=== PATIENT | female | born 1935 | race Caucasian/White ===

== ENCOUNTER 2019-11-03 08:18 | Outpatient (CLI) | payer MEDICARE, SELFPAY ==
[2019-11-03 09:06] LABS: Alanine Aminotransferase 15 U/L (4-35); Albumin Level 4.2 g/dL (3.5-5.1); Alkaline Phosphatase 93 U/L (38-126); Anion Gap 13.4 mmol/L (7-16); Aspartate Amino Transferase 27 U/L (14-36); Bilirubin,Total 0.5 mg/dL (0.2-1.3); Blood Urea Nitrogen 19 mg/dL (7-17); Calcium 9.3 mg/dL (8.4-10.2); Carbon Dioxide 26 mmol/L (22-30); Chloride 102 mmol/L (98-107); Cholesterol 142 mg/dL (0-200); Estimated Glomerular Filt Rate 48; Glucose 104 mg/dL (65-105); HDL Direct 57 mg/dL; Potassium 4.4 mmol/L (3.4-5.0); Sodium 137 mmol/L (137-145); Triglycerides 62 mg/dL (<150)
[2019-11-03 09:17] LABS: LDL Cholesterol Direct 65 mg/dL
[2019-11-03 09:19] LABS: Creatinine Urine 58.6 mg/dL
[2019-11-03 09:24] LABS: MALB Creatinine Ratio 15.9 mg/g (0-30); Microalbumin Urine Random 9.3 mg/L (0-16.7)
[2019-11-03 14:31] LABS: Hemoglobin A1C 5.5 % (<5.7)
== END 2019-11-03 08:19 | disposition home or self-care (01) ==
PROVIDERS: PCP Internal Medicine; Visit Provider Internal Medicine
DX: E78.5 Hyperlipidemia, unspecified (principal); E11.9 Type 2 diabetes mellitus without complications; I10 Essential (primary) hypertension; Z79.899 Other long term (current) drug therapy
CPT/HCPCS: 36415; 80053; 80061; 82043; 83036

== ENCOUNTER 2020-09-27 13:34 | Emergency (ER) | payer MEDICARE, SELFPAY ==
--- NOTE | ~2020-09-27 | XR_ITS ---
EXAMINATION: XR shoulder LT min 2V INDICATION: Left shoulder pain TECHNIQUE: Four views of the left shoulder are submitted. COMPARISON: None FINDINGS: Normal alignment. No fracture. There is moderate osteoarthritis of the acromioclavicular estela int and mild osteoarthritis of the glenohumeral joint. Soft tissues are unremarkable. IMPRESSION: 1. No acute osseous abnormality. Reviewed, dictated and finalized at location A.
--- NOTE | ~2020-09-27 | XR_ITS ---
EXAMINATION: XR shoulder RT min 2V INDICATION: Right shoulder pain TECHNIQUE: Four views of the right shoulder are obtained on five radiographs. COMPARISON: None FINDINGS: Normal alignment. No shoulder fracture. There is moderate osteoarthritis of the acromioclav icular joint and mild osteoarthritis of the glenohumeral joint. Soft tissues are unremarkable. An age -indeterminate T7 compression fracture is noted. IMPRESSION: 1. No acute osseous abnormality of the shoulder. 2. Age-indeterminate T7 compression fracture. Reviewed, dictated and finalized at location A.
[2020-09-27 13:48] VITALS: BP 173/87; PULSE 93; RESP 20; TEMP 36.6; O2SAT 98
--- NOTE | 2020-09-27 15:48 | ED.EXTPRO ---
HPI - Extremity Problem General Chief complaint: Extremity Problem,Nontraumatic Stated complaint: shoulder pain\ Time Seen by Provider: 09/27/20 15:17 Source: patient Mode of arrival: ambulatory Limitations: no limitations History of Present Illness HPI Narrative: This is an 84-year-old female that presents to the emergency department for bilateral shoulder pain present over the last couple of weeks. Pain is worse with movement and relieved with rest. She has been taking anti-inflammatories with relief. Reports decreased active range of motion in the shoulders due to pain. No recent injury or trauma. Denies weakness or numbness. Related Data Allergies Allergy/AdvReac Type Severity Reaction Status Date / Time No Known Allergies Allergy Verified 09/14/20 10:33 Review of Systems Review of Systems: Narrative: CONSTITUTIONAL: Denies fever MUSCULOSKELETAL: Reports joint pain, and myalgia. NEUROLOGIC: Denies numbness, or weakness. All systems reviewed & are unremarkable except as noted in HPI and below PMFSH Past Medical History Medical History Asthma Depression Diabetes Patient denies diabetes but stated she has put on it as preventative Heart murmur Hip fracture, right HTN (hypertension) Hyperlipidemia Migraines Osteopenia Osteopenia Postmenopausal Urinary tract infection Surgical History Surgical History H/O breast biopsy x3 History of hip surgery right Hx of cataract extraction March 11 & April 05 2020 Family History Family History Father Hypertension Acute myocardial infarction Mother Family history of chronic obstructive pulmonary disease Sibling Family history of chronic obstructive pulmonary disease Other Family history of coronary artery disease Social History Social History (Updated 09/14/20 @ 10:35 by Tootie Adame CMA) Social History: The patient was a homemaker. She lives with her Siddharth is [id number]. She has 2 children. She desires to be a full code. Smoking packs per day: 0.5 Smoking cigarettes per day: 10.0 Years smoked: 5 Smoking pack-years: 2.50 Smoking status: Never smoker Tobacco type: cigarettes Second hand tobacco smoke exposure: Yes Alcohol intake: never Substance use: never Substance use type: does not use Gender identity (if verbalized by the patient): Female Spiritual care concerns: No Agree to blood products: Yes Exam Narrative: Exam Narrative: GENERAL: Well-appearing, well-nourished, and in no acute distress. HEAD: Normocephalic, atraumatic. EYES: EOMI. EXTREMITIES: Normal range of motion. No edema, erythema or obvious deformity. Decreased active ROM in the shoulders above 90 degrees. Normal radial pulses. Normal sensation SKIN: Warm, dry, no rash. NEURO: No focal deficits. Alert and oriented x3. PSYCH: Normal mood and affect Course Vital Signs Vital signs: Vital Signs Temperature 97.9 F 09/27/20 13:48 Pulse Rate 93 09/27/20 13:48 Respiratory Rate 20 09/27/20 13:48 Blood Pressure 173/87 H 09/27/20 13:48 Pulse Oximetry 98 09/27/20 13:48 Temperature 97.9 F 09/27/20 13:48 Pulse Rate 93 09/27/20 13:48 Respiratory Rate 20 09/27/20 13:48 Blood Pressure 173/87 H 09/27/20 13:48 Pulse Oximetry 98 09/27/20 13:48 MDM - Extremity (Nontraumatic) MDM Narrative Medical decision making narrative: Patient presents to the emergency department for bilateral shoulder pain noted over the last couple of weeks. Worse with movement and relieved with rest. No recent injuries or trauma. Bilateral shoulder x-rays without acute osseous abnormalities of the shoulder. Does show osteoarthritis. Also shows age-indeterminate T7 compression fracture. Patient denies any back pain or any recent injuries to the back
[2020-09-27 16:46] VITALS: BP 180/103; PULSE 90; RESP 16; O2SAT 99
== END 2020-09-27 16:47 | disposition home or self-care (01) ==
PROVIDERS: Emergency Provider Emergency Medicine; PCP Internal Medicine
DX: M25.512 Pain in left shoulder (principal); M25.511 Pain in right shoulder; J45.909 Unspecified asthma, uncomplicated; I10 Essential (primary) hypertension; E78.5 Hyperlipidemia, unspecified; M85.80 Other specified disorders of bone density and structure, unspecified site; Z87.440 Personal history of urinary (tract) infections; Z98.42 Cataract extraction status, left eye; Z98.41 Cataract extraction status, right eye; Z79.84 Long term (current) use of oral hypoglycemic drugs; R93.7 Abnormal findings on diagnostic imaging of other parts of musculoskeletal system; Z87.891 Personal history of nicotine dependence
CPT/HCPCS: 73030; 99284

== ENCOUNTER 2020-11-04 09:53 | Outpatient (CLI) | payer MEDICARE, SELFPAY ==
[2020-11-04 10:48] LABS: Alanine Aminotransferase 13 U/L (4-35); Alkaline Phosphatase 79 U/L (38-126); Anion Gap 10 mmol/L (8-16); Aspartate Amino Transferase 23 U/L (14-36); Bilirubin,Total 0.5 mg/dL (0.2-1.3); Blood Urea Nitrogen 16 mg/dL (7-17); Calcium 9.8 mg/dL (8.4-10.2); Carbon Dioxide 25 mmol/L (22-30); Chloride 106 mmol/L (98-107); Cholesterol 150 mg/dL (0-200); Estimated Glomerular Filt Rate > 60; Glucose 95 mg/dL (65-110); HDL Direct 58 mg/dL; Potassium 4.5 mmol/L (3.4-5.0); Sodium 141 mmol/L (137-145); Triglycerides 116 mg/dL (<150)
[2020-11-04 10:58] LABS: LDL Cholesterol Direct 68 mg/dL
[2020-11-04 11:41] LABS: Vitamin D 25 Hydroxy 77.3 ng/mL
[2020-11-04 12:38] LABS: Hemoglobin A1C 5.7 % (<5.7)
== END 2020-11-04 09:54 | disposition home or self-care (01) ==
LOC: ANHLAB 09:56
PROVIDERS: PCP Internal Medicine; Visit Provider Nurse Practitioner
DX: E78.5 Hyperlipidemia, unspecified (principal); Z78.0 Asymptomatic menopausal state; R73.03 Prediabetes
CPT/HCPCS: 36415; 80053; 80061; 82306; 83036

== ENCOUNTER 2021-02-23 07:58 | Outpatient (CLI) | payer MEDICARE, SELFPAY ==
--- NOTE | ~2021-02-23 | MM_ITS ---
EXAMINATION: MM screening [facility] BI w luciano HISTORY: Screening mammogram TECHNIQUE: Craniocaudal and mediolateral oblique 3-D tomosynthesis images were obtained and synthetic 2-D images were generated. CAD analysis was submitted and interpreted. COMPARISON: 09/23/2018, 10/25/2016 BREAST PARENCHYMAL COMPOSITION: There are scattered areas of fibroglandular density. FINDINGS: Scattered benign-appearing calcifications are present. There is no evidence of suspicious m ass, calcification, or architectural distortion to suggest malignancy in either breast. There has bee n no suspicious interval change. IMPRESSION: 1. No mammographic evidence of malignancy. 2. Recommend routine screening mammography in one year. BI-RADS Category 2: Benign finding(s). Reviewed, dictated and finalized at location A. DEVELOPER ANALYST
--- NOTE | ~2021-02-23 | DEXA_ITS ---
Bone Density Report Name: Jasmyn Rocha Age: 85 Sex: Female Ethnicity: White Date of : 1935 Indication: osteopenia; height loss; prior fracture; postmenopausal Referring Provider: Alexis Edwards Study: Bone densitometry was performed. Exam Date: February 23, 2021 Accession number: [id number] Bone Density: Region BMD T-score Z-score Classification AP Spine (L3, L4) 0.991 -1.0 2.0 Normal Femoral Neck (Left) 0.605 -2.2 0.3 Osteopenia Total Hip (Left) 0.661 -2.3 0.0 Osteopenia World Health Organization criteria for BMD impression classify patients as: Normal (T-score at or above -1.0), Osteopenia (T-score between -1.0 and -2.5), or Osteoporosis (T-score at or below -2.5). 10-year Fracture Risk: FRAX not reported because: Prior hip or vertebral fracture Previous Exams: Region Exam Age BMD T-score BMD Change BMD Change Date g/cm2 vs Baseline vs Previous AP Spine(L3, L4) 02/23/2021 85 0.991 -1.0 -0.024(-2.3%)# 0.049(5.2%)# 09/14/2015 79 0.943 -1.4 -0.072(-7.1%)# 0.008(0.8%) 08/08/2013 77 0.935 -1.5 -0.080(-7.9%)# 0.010(1.0%) 07/11/2011 75 0.925 -1.6 -0.090(-8.9%)# -0.054(-5.5%)# 04/21/2009 73 0.980 -1.1 -0.036(-3.5%)* -0.012(-1.2%) 02/01/2007 71 0.991 -1.0 -0.024(-2.3%)* -0.024(-2.3%)* 10/17/2003 67 1.015 -0.8 Total Hip(Left) 02/23/2021 85 0.661 -2.3 -0.176(-21.1%) -0.107(-13.9%) 09/14/2015 79 0.768 -1.4 -0.069(-8.3%)# -0.014(-1.8%) 08/08/2013 77 0.782 -1.3 -0.055(-6.6%)# -0.023(-2.9%) 07/11/2011 75 0.805 -1.1 -0.032(-3.8%)# 0.013(1.6%)# 04/21/2009 73 0.792 -1.2 -0.045(-5.3%)* 0.008(1.1%) 02/01/2007 71 0.784 -1.3 -0.053(-6.3%)* -0.053(-6.3%)* 10/17/2003 67 0.837 -0.9 *Denotes significance at 95% confidence level, LSC for AP Spine = 0.022 g/cm2, LSC for Total Hip = 0.027 g/cm2 Clinical Information Provided by Patient: Have had a previous hip or vertebral fracture Has had a low trauma fracture Has used the following medications: Vitamin D Patient maximum height was 62 Menopause Age: 49 No regular weight bearing exercise Drinks caffeinated beverages Onset of menses at age 15 Number of children 4 Missed period for more than 6 months in a row Impression: The patient has low bone mass, based on the Left Total Hip T-score. The patient has risk factors, including: previous fracture. No significant bone loss was observed. Discussion: INCREASED RISK OF FRACTURE DUE TO HISTORY OF FRACTURE. The patient's previous fracture puts
== END 2021-02-23 07:59 | disposition home or self-care (01) ==
LOC: ANHIMG 08:03
PROVIDERS: PCP Internal Medicine; Visit Provider Internal Medicine
DX: Z12.31 Encounter for screening mammogram for malignant neoplasm of breast (principal); Z78.0 Asymptomatic menopausal state; M85.852 Other specified disorders of bone density and structure, left thigh
CPT/HCPCS: 77063; 77067; 77080

== ENCOUNTER → 2021-05-18 08:49 | Outpatient (CLI) | payer MEDICARE, SELFPAY ==
[2021-05-18 12:16] LABS: Influenza A QL RT-PCR Negative (Negative); Influenza B QL RT-PCR Negative (Negative); SARS-CoV-2 RNA PCR Negative
== END ==
PROVIDERS: PCP Internal Medicine; Visit Provider Internal Medicine
DX: R68.89 Other general symptoms and signs (principal); Z20.822 Contact with and (suspected) exposure to COVID-19
CPT/HCPCS: 87502; C9803; U0003; U0005

== ENCOUNTER 2021-06-21 12:37 | Outpatient (CLI) | payer MEDICARE, SELFPAY ==
--- NOTE | ~2021-06-21 | XR_ITS ---
EXAMINATION: XR chest 2V 06/21/2021 12:52 INDICATION: Cough and shortness of breath PROCEDURE: 2 view chest COMPARISON: Comparison to multiple prior studies sequentially, with oldest reviewed study dated 10/25. FINDINGS: The lungs are clear. The lungs are hyperinflated which is consistent with, but not diagnost ic of chronic obstructive pulmonary disease. The cardiomediastinal silhouette is within normal limits . There are no pleural effusions. There is no pneumothorax suspected. There is a hiatal hernia. Th ere is atherosclerosis and ectasia of the aorta. IMPRESSION: 1: NO ACUTE CARDIOPULMONARY DISEASE. Reviewed, dictated and finalized at location B.
== END 2021-06-21 12:38 | disposition home or self-care (01) ==
LOC: ANHIMG 12:38
PROVIDERS: PCP Internal Medicine; Visit Provider Internal Medicine
DX: R05.9 Cough, unspecified (principal); R06.02 Shortness of breath
CPT/HCPCS: 71046